=== PATIENT | female | born 1995 ===

== ENCOUNTER → 2017-08-20 09:03 | Outpatient (CLI) | payer OTHER | END | disposition home or self-care (01) | LOC: PPHC 09:03 | DX: Z00.00 Encounter for general adult medical examination without abnormal findings (principal) ==

== ENCOUNTER 2021-01-12 08:00 | Outpatient (CLI) | payer OTHER | END 2021-01-12 08:30 | disposition home or self-care (01) | LOC: PPH VACUNA 08:00 | DX: Z23 Encounter for immunization (principal) ==

== ENCOUNTER 2021-07-14 08:30 | Outpatient (CLI) | payer OTHER | END 2021-07-14 09:00 | disposition home or self-care (01) | LOC: PPH VACUNA 08:30 | PROVIDERS: ATTEND Emergency Medicine Pediatric Emergency Medicine | DX: Z23 Encounter for immunization (principal) ==